=== PATIENT | male | born 1975 | race African-American/Black ===

== ENCOUNTER 2017-01-15 21:27 | Emergency (ER) | payer OTHER ==
[~2017-01-15] VITALS: Ht 177.8 cm; Wt 86.2 kg
[~2017-01-15 21:27] MED LIST: LISINOPRIL10 MG PO; PROCTOCREAM-HC30 G1 RC
[2017-01-15] MEDS ORDERED: HYDROCHLOROTH12.5 M1 PO (22:07)
[2017-01-15 22:28] LABS: ABSOLUTE NEUTROPHILS 6.3 thou/uL (1.4-8.2); BASOPHILS 0.5 % (0.0-2.0); EOSINOPHILS 1.2 % (0.0-3.0); HEMATOCRIT 34.5 % (42.0-52.0); HEMOGLOBIN 11.9 gm/dL (14.0-18.0); LYMPHOCYTES 29.8 % (24.0-44.0); MCH 33.6 pg (26.0-34.0); MCHC 34.6 g/dL (28.0-37.0); MCV 97.2 fL (80.0-100.0); MONOCYTES 6.9 % (1.0-8.0); PLATELET COUNT 205 thou/uL (150-400); POLYS 61.6 % (36.0-66.0); RBC 3.56 mil/uL (4.50-6.00); WBC 10.2 thou/uL (4.0-11.0)
[2017-01-15 22:29] LABS: MANUAL DIFF NO
[2017-01-15 22:39] LABS: CALCIUM 8.7 mg/dL (8.5-10.1); CREATININE 0.8 mg/dL (0.7-1.3); POTASSIUM 3.9 mmol/L (3.5-5.1)
[2017-01-15] MEDS ORDERED: IBUPROFEN 600600 M1 PO (23:24)
[2017-01-15 23:25] VITALS: BP 150/90
[2017-01-15] MEDS ORDERED: BACTRIM DS TAB1 EACH PO (23:26)
[2017-01-15] MEDS ORDERED: NORCO 5-325 TA1 EACH PO (23:28)
== END 2017-01-15 23:39 | disposition home or self-care (01) ==
LOC: ER 21:27
PROVIDERS: Nurse Practitioner
DX: K11.20 Sialoadenitis, unspecified (principal); K04.7 Periapical abscess without sinus; I10 Essential (primary) hypertension; F17.210 Nicotine dependence, cigarettes, uncomplicated; F10.99 Alcohol use, unspecified with unspecified alcohol-induced disorder; Z88.0 Allergy status to penicillin

== ENCOUNTER 2017-02-02 22:34 | Emergency (ER) | payer BC ==
[~2017-02-02] VITALS: Ht 177.8 cm; Wt 81.7 kg
--- NOTE | ~2017-02-02 | EKG ---
[address] [address] ELECTROCARDIOGRAM REPORT Name: BRAYAN HOGAN Room #: DEP [facility]#: [id number] Admission: 02/02/17 Attend Phys: Discharge: 02/03/17 Date of : 73 Report #: [id number] THIS REPORT FOR: //name// [facility] ED Test Date: 2017-02-02 Test Time: 22:43:28 Pat Name: BRAYAN SEGAL Department: Room: Gender: M [employer]: [place] : 1975 Requested By: Jomar Hawthorne Order Number: [id number] MD: Timur Leiva Measurements Intervals [place] Rate: 68 P: 8 FL: 185 QRS: 30 QRSD: 92 T: 5 QT: 352 QTc: 375 Interpretive Statements Sinus rhythm ST elev, probable normal early repol pattern No previous ECG available for comparison Electronically Signed On 02-03-2017 7:58:00 CDT by Timur Leiva [email or web address] <ELECTRONICALLY SIGNED> By: Timur Leiva MD, [facility] 02/03/17 [id number] Timur Leiva MD, FACC /EPI
[~2017-02-02 22:34] MED LIST changes: +BACTRIM DS TAB1 EACH PO; +HYDROCHLOROTH12.5 M1 PO; +IBUPROFEN 600600 M1 PO; +NORCO 5-325 TA1 EACH PO
[2017-02-02 23:01] LABS: ABSOLUTE NEUTROPHILS 2.8 thou/uL (1.4-8.2); BASOPHILS 0.7 % (0.0-2.0); EOSINOPHILS 1.3 % (0.0-3.0); HEMATOCRIT 35.5 % (42.0-52.0); HEMOGLOBIN 12.2 gm/dL (14.0-18.0); LYMPHOCYTES 52.7 % (24.0-44.0); MCH 32.6 pg (26.0-34.0); MCHC 34.3 g/dL (28.0-37.0); MONOCYTES 6.3 % (1.0-8.0); PLATELET COUNT 288 thou/uL (150-400); RBC 3.73 mil/uL (4.50-6.00); RDW 13.3 % (10.5-14.5); WBC 7.1 thou/uL (4.0-11.0)
[2017-02-02 23:02] LABS: MANUAL DIFF NO
[2017-02-02 23:07] LABS: ANION GAP 5 mmol/L (7-16); BUN 11 mg/dL (7-18); CALCIUM 9.4 mg/dL (8.5-10.1); CHLORIDE 104 mmol/L (98-107); CO2 30 mmol/L (21-32); GLUCOSE 93 mg/dL (74-106); POTASSIUM 3.8 mmol/L (3.5-5.1); SODIUM 139 mmol/L (136-145)
[2017-02-02 23:15] LABS: TROPONIN-I < 0.04 ng/mL (<0.04-0.07)
[2017-02-03 00:26] VITALS: BP 134/91
== END 2017-02-03 00:28 | disposition home or self-care (01) ==
LOC: ER 22:34
PROVIDERS: Emergency Medicine
DX: R07.89 Other chest pain (principal); I10 Essential (primary) hypertension; F10.99 Alcohol use, unspecified with unspecified alcohol-induced disorder; Z88.0 Allergy status to penicillin

== ENCOUNTER 2018-06-14 11:49 | Emergency (ER) | payer OTHER ==
[~2018-06-14] VITALS: Ht 177.8 cm; Wt 81.7 kg
[2018-06-14] MEDS ORDERED: AFRIN15 ML NASAL (13:24)
[2018-06-14] MEDS ORDERED: CLARITIN-D 121 EAC1 PO (13:24)
[2018-06-14] MEDS ORDERED: DEXACIDIN EYE DR5 ML OPHTHALMIC (13:24)
[2018-06-14 13:46] VITALS: BP 137/79
== END 2018-06-14 13:46 | disposition home or self-care (01) ==
LOC: ER 11:49
DX: J06.9 Acute upper respiratory infection, unspecified (principal); H10.9 Unspecified conjunctivitis; I10 Essential (primary) hypertension; Z87.891 Personal history of nicotine dependence; Z88.0 Allergy status to penicillin

== ENCOUNTER 2018-06-16 13:52 | Emergency (ER) | payer OTHER ==
[~2018-06-16] VITALS: Ht 177.8 cm; Wt 79.4 kg
[~2018-06-16 13:52] MED LIST changes: +AFRIN15 ML NASAL; +CLARITIN-D 121 EAC1 PO; +DEXACIDIN EYE DR5 ML OPHTHALMIC
[2018-06-16] MEDS ORDERED: LEVAQUIN 500 M500 M1 PO (14:43)
[2018-06-16 18:01] VITALS: BP 149/95
== END 2018-06-16 15:00 | disposition home or self-care (01) ==
LOC: ER 13:52
DX: J01.10 Acute frontal sinusitis, unspecified (principal); I10 Essential (primary) hypertension

== ENCOUNTER 2019-01-30 22:02 | Emergency (ER) | payer OTHER ==
[~2019-01-30] VITALS: Ht 177.8 cm; Wt 81.7 kg
[~2019-01-30 22:02] MED LIST changes: +LEVAQUIN 500 M500 M1 PO
[2019-01-30] MEDS ORDERED: ALLEGRA ALLERG180 MG PO (22:17)
[2019-01-30] MEDS ORDERED: BIKTARVY 50-201 EACH PO (22:17)
[2019-01-30] MEDS ORDERED: VALACYCLOVIR500 MG PO (22:18)
[2019-01-30] MEDS ORDERED: NASAL SPRAY NASAL (22:18)
[2019-01-31] MEDS ORDERED: MOBIC15 MG PO (00:08)
[2019-01-31 00:22] VITALS: BP 124/74
== END 2019-01-31 00:23 | disposition home or self-care (01) ==
LOC: ER 22:02
DX: S46.811A Strain of other muscles, fascia and tendons at shoulder and upper arm level, right arm, initial encounter (principal); I10 Essential (primary) hypertension; Z87.891 Personal history of nicotine dependence; Z79.899 Other long term (current) drug therapy; X50.1XXA Overexertion from prolonged static or awkward postures, initial encounter; Y93.89 Activity, other specified; Y92.89 Other specified places as the place of occurrence of the external cause; Y99.9 Unspecified external cause status

== ENCOUNTER 2020-04-14 17:07 | Emergency (ER) | payer OTHER ==
[~2020-04-14] VITALS: Ht 177.8 cm; Wt 88.5 kg
[~2020-04-14 17:07] MED LIST changes: +ALLEGRA ALLERG180 MG PO; +BIKTARVY 50-201 EACH PO; +MOBIC15 MG PO; +NASAL SPRAY NASAL; +VALACYCLOVIR500 MG PO
[2020-04-14 19:26] LABS: URINE BILIRUBIN NEGATIVE (Negative); URINE BLOOD NEGATIVE (Negative); URINE CLARITY CLEAR; URINE COLOR YELLOW; URINE GLUCOSE-RANDOM* NEGATIVE (Negative); URINE KETONES NEGATIVE (Negative); URINE LEUKOCYTES-REFLEX NEGATIVE (Negative); URINE NITRITE-REFLEX NEGATIVE (Negative); URINE PROTEIN (DIPSTICK) NEGATIVE (Negative); URINE UROBILINOGEN 0.2 E.U./dl (0.2-1.0)
[2020-04-14] MEDS ORDERED: NORCO 5-325 TA1 EAC2 PO (19:50)
[2020-04-14 20:30] VITALS: BP 125/81
== END 2020-04-14 20:32 | disposition home or self-care (01) ==
LOC: ER 17:07
PROVIDERS: Physician Assistant
DX: M25.562 Pain in left knee (principal); I10 Essential (primary) hypertension; Z79.899 Other long term (current) drug therapy; Z88.0 Allergy status to penicillin; Z87.891 Personal history of nicotine dependence; W10.8XXA Fall (on) (from) other stairs and steps, initial encounter; Y93.89 Activity, other specified; Y92.89 Other specified places as the place of occurrence of the external cause; Y99.8 Other external cause status

== ENCOUNTER 2020-10-16 20:49 | Emergency (ER) | payer OTHER ==
[~2020-10-16] VITALS: Ht 177.8 cm; Wt 86.2 kg
[~2020-10-16 20:49] MED LIST changes: +NORCO 5-325 TA1 EAC2 PO
[2020-10-16 20:52] VITALS: BP 141/93
== END 2020-10-16 21:09 | disposition home or self-care (01) ==
LOC: ER 20:49
DX: Z04.3 Encounter for examination and observation following other accident (principal); I10 Essential (primary) hypertension; F12.90 Cannabis use, unspecified, uncomplicated; Z87.891 Personal history of nicotine dependence; Z88.0 Allergy status to penicillin; Z79.899 Other long term (current) drug therapy; V49.88XA Car occupant (driver) (passenger) injured in other specified transport accidents, initial encounter; Y93.89 Activity, other specified; Y92.413 State road as the place of occurrence of the external cause; Y99.9 Unspecified external cause status

== ENCOUNTER 2020-11-17 21:32 | Emergency (ER) | payer OTHER ==
[~2020-11-17] VITALS: Ht 177.8 cm; Wt 86.2 kg
[2020-11-18] MEDS ORDERED: NAPROSYN500 MG PO (02:42)
[2020-11-18] MEDS ORDERED: ZANAFLEX4 MG PO (02:42)
[2020-11-18 03:02] VITALS: BP 124/84
== END 2020-11-18 03:03 | disposition home or self-care (01) ==
LOC: ER 21:32
DX: S16.1XXA Strain of muscle, fascia and tendon at neck level, initial encounter (principal); S29.012A Strain of muscle and tendon of back wall of thorax, initial encounter; M25.552 Pain in left hip; I10 Essential (primary) hypertension; F17.210 Nicotine dependence, cigarettes, uncomplicated; Z88.0 Allergy status to penicillin; Z98.890 Other specified postprocedural states; V48.9XXA Unspecified car occupant injured in noncollision transport accident in traffic accident, initial encounter; Y93.89 Activity, other specified; Y92.488 Other paved roadways as the place of occurrence of the external cause; Y99.8 Other external cause status